=== PATIENT | female | born 1980 | race American Indian/Alaskan Native ===

== ENCOUNTER 2018-05-12 15:01 | Emergency (ER) | payer OTHER ==
--- NOTE | 2018-05-12 15:33 | Emergency Department Report ---
Blank Doc - Documentation Documentation: This is a 38-year-old female that presents with chest pain with radiation to m idsternum with radiation to back area. Denies any SOB. Denies any other complaints or symptoms. This initial assessment/diagnostic orders/clinical plan/treatment(s) is/are subject to change based on patient's health status, clinical progression and re- assessment by fellow clinical providers in the ED. Further treatment and workup at subsequent clinical providers discretion. Patient/guardians urged not to elope from the ED as their condition may be serious if not clinically assessed and managed. Initial orders include: 1- Patient sent to [facility] for further evaluation and treatment 2- EKG 3- CXR 4- Labs
[2018-05-12 15:44] VITALS: BP 116/64
[2018-05-12 15:57] LABS: Basophils # (Auto) 0.1 K/mm3 (0.0-0.1); Basophils % (Auto) 1.2 % (0.0-1.8); Eosinophils # (Auto) 0.2 K/mm3 (0.0-0.4); Eosinophils % (Auto) 2.4 % (0.0-4.3); Hematocrit 35.3 % (30.3-42.9); Hemoglobin 11.7 gm/dl (10.1-14.3); Lymphocytes # (Auto) 1.8 K/mm3 (1.2-5.4); Lymphocytes % (Auto) 25.9 % (13.4-35.0); Mean Corpuscular HGB Conc 33 % (30-34); Mean Corpuscular Volume 83 fl (79-97); Monocytes # (Auto) 0.6 K/mm3 (0.0-0.8); Platelet Count 192 K/mm3 (140-440); Red Blood Count 4.23 M/mm3 (3.65-5.03); Red Cell Distribution Width 14.3 % (13.2-15.2)
[2018-05-12 16:12] LABS: BUN/Creatinine Ratio 14; Blood Urea Nitrogen 13 mg/dL (7-17); Calcium 8.9 mg/dL (8.4-10.2); Hemolysis Index 7
--- NOTE | 2018-05-12 16:33 | XRay Report ---
PROCEDURE: XR CHEST ROUTINE 2V TECHNIQUE: PA and lateral views of the chest. HISTORY: Chest Pain COMPARISONS: None FINDINGS: Lines, tubes, and devices: N/A Lungs and pleura: Trachea is normal in position. Lungs are clear of infiltrate, pleural effusion, vas cular congestion, or pneumothorax. Cardiomediastinal silhouette: Cardiac and mediastinal silhouettes are unremarkable. Other: Bony structures are intact. IMPRESSION: No acute cardiopulmonary process seen. . This document is electronically signed by Deborah Holliday MD., May 12 2018 04:30:43 PM ET
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
== END 2018-05-12 16:55 | disposition home or self-care (01) ==
LOC: ED 15:01
DX: J06.9 Acute upper respiratory infection, unspecified (principal)
CPT/HCPCS: 36415; 71046; 80048; 84484; 85025; 93005; 93010

== ENCOUNTER 2019-11-29 13:44 | Emergency (ER) | payer SELFPAY ==
[2019-11-29 14:13] VITALS: BP 121/86
--- NOTE | 2019-11-29 17:34 | Emergency Department Report ---
Chief Complaint: Skin/Abscess/Foreign Body Stated Complaint: ITCHY ALL OVER Time Seen by Provider: 11/29/19 16:20 - HPI History of Present Illness: Patient is a 39-year-old female presents emergency room with complaints of vaginal itching and a lump present in the vagina that began a week ago. She denies any vaginal discharge, vaginal bleeding, lesions or blisters, dysuria, fever, vomiting, abdominal pain, pelvic pain. No past medical history. No allergies medications. Last menstrual cycle November 06. Vitals are normal On exam: Non toxic appearing, no acute distress atraumatic, normocephalic normal appearance of the eyes, EOMI, no periorbital edema or ecchymosis moist mucus membranes no respiratory distress, no accessory muscle use technical project lead: rohit gale PA-C, there is a uterine prolapse present, there is a bulge present at the vaginal canal but does not protrude outside of the canal, no visualized discharge, no lesions or blisters, no lacerations, no ecchymosis, no erythema, no scaling A&O x4, no focal neuro deficit skin is warm, dry, intact Patient is presenting with vaginal itching and the lump present in the vagina Examination with technical project lead shows signs of uterine prolapse She denies any vaginal discharge, vaginal bleeding, lesions or blisters, dysuria, fever, vomiting, abdominal pain, pelvic pain. Patient will be referred to [facility] and primary care doctor Advised patient to use miconazole [id number] to help with vaginal itching Patient referred to the appropriate resources Discussed strict return precautions Medical screening examination performed and there is no threat to life or limb at this time - Exam Vital Signs: Vital Signs 11/29/19 14:09 Temperature 98.2 F Pulse Rate 76 Respiratory 16 Rate Blood Pressure 121/86 O2 Sat by Pulse 100 Oximetry MSE screening note: Focused history and physical exam performed. Due to findings the following was ordered: ED Disposition for MSE Clinical Impression: Vaginal itching, Uterine prolapse Disposition: MED SCREENING EXAM-LEFT Is pt being admited?: No Does the pt Need Aspirin: No Condition: Stable Instructions: Vaginitis (ED), Uterine Prolapse (ED) Additional Instructions: Please use miconazole ointment [id number] to help with vaginal itching. Please follow-up with the [facility] regarding uterine prolapse. Follow-up with a primary care doctor. Return to emergency room for any new or worsening symptoms. Referrals: [facility] [Provider Group] - 2-3 Days WHITNEY HARRISON MD [Staff Physician] - 2-3 Days Time of Disposition: 17:33 Print Language: QATARI
== END 2019-11-29 17:58 | disposition left against medical advice (07) ==
LOC: ED 13:44
DX: L29.9 Pruritus, unspecified (principal); Z53.21 Procedure and treatment not carried out due to patient leaving prior to being seen by health care provider